=== PATIENT | male | born 1945 | race Caucasian/White ===

== ENCOUNTER 2021-10-19 09:46 | Outpatient (CLI) | payer BC | END 2021-10-19 09:47 | disposition home or self-care (01) | LOC: CSHRAD 09:46 | PROVIDERS: ATTEND Urology | DX: C61 Malignant neoplasm of prostate (principal); N32.89 Other specified disorders of bladder | CPT/HCPCS: 51600; 74430 ==

== ENCOUNTER 2023-08-24 12:33 | Outpatient (CLI) | payer MEDICARE, BC ==
[2023-08-24 13:41] LABS: Hematocrit 41.4 % (38.8-50.0); Mean Corpuscular HGB CONC 33.8 g/dL (32.0-36.0); Mean Corpuscular Hemoglobin 29.9 pg (27.0-33.0); Mean Corpuscular Volume 88.3 fl (81.2-95.1); Mean Platelet Volume 9.4 fl (7.4-10.4); Platelet Count 194 10x3/uL (150-450); RBC Distribution Width 13.1 % (11.5-14.5); Red Blood Cell (RBC) Count 4.69 10x6/uL (4.32-5.72); White Blood Cell (WBC) Count 4.8 10x3/uL (3.5-10.5)
[2023-08-24 13:58] LABS: Anion Gap 14 mmol/L (10-20); BUN (Urea Nitrogen) 29 mg/dL (8.4-25.7); Calc. Creatinine Clearance 0 mL/min (70-130); Calcium 8.9 mg/dL (7.8-10.44); Carbon Dioxide 21 mmol/L (23-31); Chloride 111 mmol/L (98-107); Estimated GFR 52; Glucose 98 mg/dL (83-110); Potassium 4.1 mmol/L (3.5-5.1); Sodium 142 mmol/L (136-145)
== END 2023-08-24 12:34 | disposition home or self-care (01) ==
LOC: CSHLAB 12:33
PROVIDERS: ATTEND Surgery
DX: Z01.812 Encounter for preprocedural laboratory examination (principal); D49.2 Neoplasm of unspecified behavior of bone, soft tissue, and skin
CPT/HCPCS: 80048; 85027

== ENCOUNTER 2023-08-26 06:01 | Day surgery (SDC) | payer MEDICARE ==
[2023-08-24 13:18] VITALS: BMI 23.7
[2023-08-26] MEDS ORDERED: EPINEPHrine 1 MG/ML VIAL ONE (06:32)
[2023-08-26] MEDS ORDERED: Bupivacaine PF 0.5% 30 ML VIAL ONE (06:32)
[2023-08-26] MEDS ORDERED: Clindamycin/D5W 600 mg/50 ml Premix Bag ONE (07:35)
[2023-08-26] MEDS ORDERED: fentaNYL 50 mcg/mL 1 mL Vial ONE (07:42)
[2023-08-26] MEDS ORDERED: PROPOFOL 20 ML ONE (07:42)
[2023-08-26] MEDS ORDERED: Rocuronium Bromide 10 MG/ML (10ML VIAL) ONE (07:43)
[2023-08-26] MEDS ORDERED: Lidocaine 1% PF 5 ML VIAL ONE (07:43)
[2023-08-26] MEDS ORDERED: MINERAL OIL/WHITE PETROLATUM 3.5 GM TUBE ONE (07:45)
[2023-08-26] MEDS ORDERED: ePHEDrine Sulfate 50 MG/10 ML VIAL ONE (08:16)
[2023-08-26] MEDS ORDERED: Dexamethasone 4 mg/ml Vial ONE (08:47)
[2023-08-26] MEDS ORDERED: Glycopyrrolate 0.2 MG/ML 5 ML SYRINGE ONE (08:47)
[2023-08-26] MEDS ORDERED: Ondansetron PF 4 MG/2 ML Vial ONE (08:47)
[2023-08-26] MEDS ORDERED: Acetaminophen 325 MG TAB PO PRN (09:06)
[2023-08-26] MEDS ORDERED: HYDROcodone/Acetaminophen 5/325 mg Tablet PO PRN ×2 (09:06)
== END 2023-08-26 10:16 | disposition home or self-care (01) ==
LOC: CSHSDC 06:01
PROVIDERS: ATTEND Surgery
PROC: 0PB Upper Bones, Excision (ICD-10-PCS; principal; 2023-08-26)
DX: R93.7 Abnormal findings on diagnostic imaging of other parts of musculoskeletal system (principal); C61 Malignant neoplasm of prostate; I10 Essential (primary) hypertension; Z79.899 Other long term (current) drug therapy; Z88.0 Allergy status to penicillin
CPT/HCPCS: 20240; C1713; J0171; J3010; 88305; 88311; 88341; 88342; J1100; J2405; J2704; J3490; S0020